=== PATIENT | male | born 1970 | race Caucasian/White ===

== ENCOUNTER 2019-10-24 19:17 | Emergency (ER) | payer MEDICAID, OTHER ==
[~2019-10-24] VITALS: Ht 175.3 cm; Wt 81.0 kg
--- NOTE | 2019-10-24 19:42 | NUR ---
PT STATES WORKING IN [employer] AND MOVING WOOD PALLET WHEN IT DROPPED ON RIGHT FOOT. PT STATES ABLE TO WALK ON FOOT FOR 1.5 HOURS BEFORE PAIN BECAME TOO UNBEARABLE. PT STATES ATTEMPTING ICE, TYLENOL AND ELEVATION WITH MINIMAL RELIEF, STATES 9/10 PAIN. PT HAS FOOT WRAPPED IN GAYATRI BANDAGE, RESTING IN BED, NO DISTRESS NOTED, SAFETY PRECAUTIONS IN PLACE.
[2019-10-24] MEDS ORDERED: IBUPROFEN 600 MG TABLET ONE (20:57)
[2019-10-24] MEDS ORDERED: IBUPROFEN 600 MG TABLET PO ONE (21:00)
--- NOTE | 2019-10-24 21:08 | NUR ---
MEDICATED FOR PAIN, AND TECH AT BEDSIDE TO WRAP FOOT AND PATIENT CAME IN WITH CRUTCHES.
[2019-10-24 21:47] VITALS: BP 112/78
== END 2019-10-24 22:00 | disposition home or self-care (01) ==
LOC: ED 19:59
DX: S90.31XA Contusion of right foot, initial encounter (principal); F17.210 Nicotine dependence, cigarettes, uncomplicated; I10 Essential (primary) hypertension; W20.8XXA Other cause of strike by thrown, projected or falling object, initial encounter; Y93.89 Activity, other specified; Y92.69 Other specified industrial and construction area as the place of occurrence of the external cause; Y99.8 Other external cause status
CPT/HCPCS: 99283; 99406